=== PATIENT | male | born 1975 | race Caucasian/White ===

== ENCOUNTER 2020-01-02 03:05 | Observation (INO) ==
[2020-01-02] MEDS ORDERED: ASPIRIN 81 MG TAB.CHEW PO ONE (03:21)
[2020-01-02 03:22] LABS: Hematocrit 48.1 % (42.0-52.0); Hemoglobin 15.6 gm/dL (13.5-18.0); Mean Corpuscular Hemoglobin 33.4 pg (27-31); Mean Corpuscular Hgb Conc 32.4 g/dl (32-36); Mean Platelet Volume 10.9 fl (8-11.3); Platelet Count 161 K/mm3 (150-450); Red Blood Count 4.67 M/mm3 (4.7-6.0); Red Cell Distribution Width 14.2 % (11.5-14.0); White Blood Count 12.5 K/mm3 (4.0-10.5)
[2020-01-02 03:25] LABS: Total Cells Counted 100
[2020-01-02] MEDS ORDERED: FUROSEMIDE 10 MG/ML VIAL IV ONE (03:31)
[2020-01-02 03:35] LABS: Atypical (Reactive) Lymph 1 % (0-2); Band 1 % (0-2.0); Eosinophil 1 % (0-3); Lymphocyte 50 % (20-51); Monocyte 2 % (0-9); Neutrophil 45 % (42-75); Neutrophil # 5.6 K/mm3 (1.3-6.0)
[2020-01-02 03:36] LABS: Macrocytosis 2+; Platelet Estimate Normal (NORMAL)
[2020-01-02 03:37] LABS: Anisocytosis Trace; Polychromasia 1+
--- NOTE | 2020-01-02 03:40 | ERNOTE ---
Dyspnea - General Presenting Symptoms: shortness of breath Time Seen by Provider: 01/02/20 03:05 Source: patient Exam Limitations: no limitations - Immun/Allergies/Home Medications Immunizations: IMMUNIZATION HX Immunizations Up to Date Yes History of Influenza Vaccine No Allergies/Adverse Reactions: Allergies erythromycin base Allergy (Verified 01/02/20 03:18) Home Medications: HOME MEDICATIONS Carvedilol [Coreg] 6.25 mg PO BID 01/02/20 [Last Taken Unknown] Lisinopril [Zestril] 40 mg PO DAILY 01/02/20 [Last Taken Unknown] Rivaroxaban [Xarelto] 20 mg PO HS 01/02/20 [Last Taken Unknown] metFORMIN HCL [Metformin HCl] 1,000 mg PO DAILY 01/02/20 [Last Taken Unknown] - History of Present Illness Narrative: Patient states that he has had intermittent episodes of shortness of breath over the last few days. On 3 prior occasions including yesterday he woke up in the it instructor hours short of breath and ended up having to sleep in his chair. Symptoms improved over the next few hours. He has had some shortness of breath with heavy lifting at work intermittently as well and occasional chest pain. At 2:00 this morning he again woke up with severe shortness of breath, denies any significant chest pain. His is bringing him by private car from [place]. He had recent cardioversion at [facility] about 2 months ago for atrial fibrillation, has been on xarelto since, is not aware of any significant coronary artery disease, has a diagnosis of diabetes, high blood pressure and is a smoker, no history of lung disease. Date (Duration): 01/02/20 Time (Timing): 02:00 Initiating event: Denies: upper resp illness, out of meds Frequency of episodes: Reports: occassional episodes Modifying Factors - (Improves): Reports: rest Modifying Factors (Worsens): Reports: activity Associated Symptoms-Dyspnea: Denies: fever/chills, cough Prior Treatment: Reports: recently seen Review of Systems - Review of Systems Constitutional: Absent: recent illness, fever ENT: Absent: nose congestion, sore throat Respiratory: Present: See HPI, shortness of breath, cough Cardiology: Absent: chest pain Gastrointestinal/Abdominal: Absent: nausea, vomiting, abdominal pain Genitourinary: Present: no symptoms reported Musculoskeletal: Absent: back pain Neurological: Absent: headache Medical History (Last Reviewed 01/02/20 @ 03:23 by Genna Angulo MD) Afib Diabetes Hypertension Surgical History: Surgical History (Last Reviewed 01/02/20 @ 03:23 by Genna Angulo MD) No pertinent past surgical history Family History: Family History (Last Updated 01/02/20 @ 03:21 by Karina Hyman) Father Social History: (Last Updated 01/02/20 @ 03:19 by Karina Hyman) Social History: adopted: No foster care: No Marital status: Tobacco: Smoking Status: Current every day smoker Smoking cigarettes per day: 20 Alcohol: alcohol intake frequency: a few times a week Substance Use: substance use type: does not use Dietary Habits: Type: coffee high-fat food intake: 0-1 times daily Physical Exam - Physical Exam General Appearance: Present: wd/wn, alert, moderate distress Head Exam: Present: normal inspection Respiratory: Present: no accessory muscle use, respiratory distress, decreased breath sounds, expiration (prolonged), wheezing Cardiovascular/Chest: Present: no murmur, tachycardia Gastrointestinal/Abdominal: Present: normal bowel sounds, nontender Extremity Exam: Present: no edema Neurological Exam: Present: alert, oriented, normal mood/affect Skin Exam: Present: warm/dry, cyanosis Progress - Results and Orders Patient's Lab Results:: I have reviewed the patient's lab results. - Vital Signs Patient's Vital Signs:: I have reviewed the patient's vital signs. Vital Signs: Vital Signs 01/02/20 03:09 Temperature 36.7 C Pulse Rate 121 H Respiratory Rate 38 H Blood Pressure 209/114 H O2 Sat by Pulse Oximetry 74 L - EKG EKG #1 EKG: atrial fibrillation - HR 129, RBBB, nonspecific ST T wave changes EKG read: Interp. by me - X-Ray X-Ray #1 X-Ray: chest - cardiomegalie Interpretation: Interp. by me - Progress/Reassessment Chief Complaint: Dyspnea Progress Note-Subjective: 01/02/20 03:20 call to [facility], discussed with Dr Jewell (ERP), prior EKG has similar block picture 01/02/20 03:40 patient 93-93 on 10liter per ventimask 01/02/20 03:[address] Echevarria, no acute changes 01/02/20 04:13 patient had 400ml urine out put after lasix 60mg he is feeling much better, appears more comfortable with improved color, wheezing has resolved, HR 90's, O2 sat 93% on 6 liter discussed test results and offered admission, patient agrees 01/02/20 04:[address] Granados ,okay to admit for observation for CHF Departure Clinical Impression: CHF (congestive heart failure) Qualifiers: Heart failure type: unspecified Heart failure chronicity: acute Qualified Code(s): I50.9 - Heart failure, unspecified - Departure Disposition: Still a patient Condition: Stable
[2020-01-02 03:41] LABS: Albumin * 4.2 gm/dl (3.4-5.0); Anion Gap 9.8 mmol/L (6.8-13.8); BUN/Creatinine Ratio 18.1 (9.0-21.6); Bilirubin, Total 0.4 mg/dL (0.0-1.1); Ca. Corrected For Albumin 8.6 mg/dL (8.4-10.2); Calcium * 9.1 mg/dL (7.9-10.9); Carbon Dioxide 31.6 mmol/L (24-32.6); Potassium 4.4 mmol/L (3.4-4.6); Troponin I 0.02 ng/mL (0.00-0.10)
[2020-01-02 09:14] LABS: CKMB 2.4 ng/mL (0.0-9.0)
[2020-01-02 09:15] LABS: Troponin I 0.042 ng/mL (0.00-0.10)
[2020-01-02] MEDS ORDERED: LISINOPRIL 40 MG TABLET PO SCH (12:00)
[2020-01-02] MEDS ORDERED: metFORMIN HCL 500 MG TABLET PO SCH (12:00)
[2020-01-02] MEDS ORDERED: CARVEDILOL 6.25 MG TABLET PO SCH (12:00)
--- NOTE | 2020-01-02 13:47 | HPDIS ---
Chief Complaint - Chief Complaint Date of Service: 01/02/20 Time of Service: 13:36 Chief Complaint: Shortness of breath History of Present Illness: 44-year-old male with history of A. fib and hypertension presented to the ER following 2 to 3 weeks of worsening shortness of breath. In the ER he was found to have an elevated BNP at greater than 2600 but otherwise fairly unremarkable lab work. He was requiring oxygen to maintain sats in the appropriate range. Patient given IV Lasix and had significant diuresis while in the ER. Chest x- ray showed possible vascular congestion but no other acute cardiopulmonary process. Troponins negative x2. Patient on Xarelto for A. fib. Patient placed under observation for CHF exacerbation and transferred to the floor. Medical History (Last Reviewed 01/02/20 @ 05:20 by Kassy Mcallister RN) Afib Diabetes History of cardioversion synchonized at [facility] about 2 months ago Hypertension Surgical History: Surgical History (Last Reviewed 01/02/20 @ 03:23 by Genna Angulo MD) No pertinent past surgical history Family History: Family History (Last Updated 01/02/20 @ 03:21 by Karina Hyman) Father Social History: (Last Updated 01/02/20 @ 03:19 by Karina Hyman) Social History: adopted: No foster care: No Marital status: Tobacco: Smoking Status: Current every day smoker Smoking cigarettes per day: 20 Alcohol: alcohol intake frequency: a few times a week Substance Use: substance use type: does not use Dietary Habits: Type: coffee high-fat food intake: 0-1 times daily Review Of Systems (GEN) - Review of Systems Generalized/Overall Review: Absent: Weakness, Chills, Fever EENTM: Present: No Symptoms Reported Respiratory: Present: Shortness of Breath. Absent: Cough Cardiac: Present: No Symptoms Reported. Absent: Edema Abdominal: Present: No Symptoms Reported Genitourinary: Present: No Symptoms Reported Musculoskeletal: Present: No Symptoms Reported Skin: Present: No Symptoms Reported Immunizations: IMMUNIZATION HX Immunizations Up to Date Yes History of Influenza Vaccine No Allergies/Adverse Reactions: Allergies Allergy/AdvReac Type Severity Reaction Status Date / Time erythromycin base Allergy Verified 01/02/20 03:18 Home Medications: HOME MEDICATIONS Carvedilol [Coreg] 6.25 mg PO BID 01/02/20 [Last Taken Unknown] Furosemide [Lasix] 20 mg PO DAILY #30 tab 01/02/20 [Last Taken Unknown] Lisinopril [Zestril] 40 mg PO DAILY 01/02/20 [Last Taken Unknown] Rivaroxaban [Xarelto] 20 mg PO HS 01/02/20 [Last Taken Unknown] metFORMIN HCL [Metformin HCl] 1,000 mg PO DAILY 01/02/20 [Last Taken Unknown] Exam - Exam Vital Signs: Vital Signs - Last Taken Temp 37.3 C 01/02/20 10:53 Pulse 83 01/02/20 12:21 Resp 12 01/02/20 10:53 BP 155/97 H 01/02/20 12:21 Pulse Ox 95 01/02/20 10:53 Constitutional: Present: Alert, Oriented x3, Cooperative, Obese ENT Exam: Present: hearing grossly normal. Absent: nasal congestion, nasal drainage Eye Exam: bilateral eye: normal inspection, EOMI Neck: Present: non-tender, supple Respiratory: Present: lungs clear, normal breath sounds, no respiratory distress Cardiovascular/Chest: Present: no murmur, irregularly irregular Abdomen: Present: Normal bowel sounds, soft, nontender Extremity: Absent: lower extremity edema Skin Exam: Present: normal color, warm/dry Appearance: Present: appropriate appearance, appropriate insight Eye contact: Present: cooperative, good eye contact Thoughts: Present: normal thought pattern, normal mood /affect Diagnostic Studies: Abnormal Lab Results 01/02/20 01/02/20 Range/Units 03:20 03:20 WBC 12.5 H (4.0-10.5) K/mm3 RBC 4.67 L (4.7-6.0) M/mm3 MCV 103.0 H (78-100) fl MCH 33.4 H (27-31) pg RDW 14.2 H (11.5-14.0) % Lymphocytes # (Manual) 6.3 H (1.5-3.5) k/mm3 Plasma Sodium 144 H (130-142) mmol/L Random Glucose 206 H (70-110) mg/dL ALT 79 H (19-67) U/L B-Natriuretic Peptide 2617 H (5-140) pg/mL Laboratory Results WBC 12.5 K/mm3 (4.0-10.5) H 01/02/20 03:20 RBC 4.67 M/mm3 (4.7-6.0) L 01/02/20 03:20 Hgb 15.6 gm/dL (13.5-18.0) 01/02/20 03:20 Hct 48.1 % (42.0-52.0) 01/02/20 03:20 MCV 103.0 fl (78-100) H 01/02/20 03:20 MCH 33.4 pg (27-31) H 01/02/20 03:20 MCHC 32.4 g/dl (32-36) 01/02/20 03:20 RDW 14.2 % (11.5-14.0) H 01/02/20 03:20 Plt Count 161 K/mm3 (150-450) 01/02/20 03:20 MPV 10.9 fl (8-11.3) 01/02/20 03:20 Neutrophils % (Manual) 45 % (42-75) 01/02/20 03:20 Band Neuts % (Manual) 1 % (0-2.0) 01/02/20 03:20 Lymphocytes % (Manual) 50 % (20-51) 01/02/20 03:20 Monocytes % (Manual) 2 % (0-9) 01/02/20 03:20 Eosinophils % (Manual) 1 % (0-3) 01/02/20 03:20 Neutrophils # (Manual) 5.6 K/mm3 (1.3-6.0) 01/02/20 03:20 Lymphocytes # (Manual) 6.3 k/mm3 (1.5-3.5) H 01/02/20 03:20 Monocytes # (Manual) 0.3 k/mm3 (0.0-1.0) 01/02/20 03:20 Eosinophils # (Manual) 0.1 k/mm3 (0.0-0.7) 01/02/20 03:20 Atypic/Reactive Lymphs 1 % (0-2) 01/02/20 03:20 Platelet Estimate Normal (NORMAL) 01/02/20 03:20 Polychromasia 1+ 01/02/20 03:20 Anisocytosis Trace 01/02/20 03:20 Macrocytosis 2+ 01/02/20 03:20 D-Dimer 0.43 ug/mL (0.19-0.49) 01/02/20 03:20 Sodium 142 mmol/L (132-142) 01/02/20 03:20 Plasma Sodium 144 mmol/L (130-142) H 01/02/20 03:20 Potassium 4.4 mmol/L (3.4-4.6) 01/02/20 03:20 Chloride 105 mmol/L (97-106) 01/02/20 03:20 Carbon Dioxide 31.6 mmol/L (24-32.6) 01/02/20 03:20 Anion Gap 9.8 mmol/L (6.8-13.8) 01/02/20 03:20 BUN 19 mg/dL (6-23) 01/02/20 03:20 Creatinine 1.05 mg/dL (0.4-1.4) 01/02/20 03:20 Est GFR (Non-Af Amer) 81 mL/min (60-130) 01/02/20 03:20 BUN/Creatinine Ratio 18.1 (9.0-21.6) 01/02/20 03:20 Random Glucose 206 mg/dL (70-110) H 01/02/20 03:20 Calcium 9.1 mg/dL (7.9-10.9) 01/02/20 03:20 Calcium Adj for Albumin 8.6 mg/dL (8.4-10.2) 01/02/20 03:20 Total Bilirubin 0.4 mg/dL (0.0-1.1) 01/02/20 03:20 AST 44 U/L (0-48) 01/02/20 03:20 ALT 79 U/L (19-67) H 01/02/20 03:20 Alkaline Phosphatase 92 U/L (50-170) 01/02/20 03:20 Creatine Kinase 194 U/L (0-259) 01/02/20 08:49 CK-MB (CK-2) 2.4 ng/mL (0.0-9.0) 01/02/20 08:49 CK-MB (CK-2) Rel Index 1.2 (0.0-3.6) 01/02/20 08:49 Troponin I 0.042 ng/mL (0.00-0.10) 01/02/20 08:49 B-Natriuretic Peptide 2617 pg/mL (5-140) H 01/02/20 03:20 Total Protein 8.0 gm/dL (6.2-8.2) 01/02/20 03:20 Albumin 4.2 gm/dl (3.4-5.0) 01/02/20 03:20 Assessment/Plan - Narrative Narrative: 44-year-old male with history of hypertension, A. fib, diabetes, and CHF presented to the hospital shortness of breath initially requiring oxygen mask to maintain sats. This lasted for right around 3 hours the patient was transitioned to room air which she is maintaining sats in the upper 90s since. Not currently complaining of shortness of breath, cough, chest pain. Patient did receive some IV Lasix which helped pull off some fluid and made him much more comfortable. Currently feels well and wants to go home. His vital signs are stable although his blood pressure slightly elevated, he just received his blood pressure medicines though. Blood pressures in the 150s and okay to be discharged home. Patient had negative troponins. Cardia function electrolytes okay, mildly elevated sugars. Patient had mildly elevated white count which is likely due to stress reaction as there is no focal signs or symptoms of infection. MCV also elevated which I advised him to discuss this with his PCP. Not anemic. BNP at 2617 but otherwise the rest of his lab work unremarkable and his vital signs are stable. We will send him home with some oral Lasix that he can take when he starts to develop shortness of breath. Again he should follow-up with his PCP and superior court clerk in regards to his cardiac history which he agrees to do. He sees Dr. Echevarria. Otherwise no changes to his chronic medications. - Assessment/Plan (1) CHF (congestive heart failure) Problem: Acute Qualifiers: Heart failure type: unspecified Heart failure chronicity: acute Qualified Code(s): I50.9 - Heart failure, unspecified (2) A-fib Problem: Acute (3) Hypertension Problem: Acute (4) Diabetes Problem: Acute (1) CHF (congestive heart failure) Problem: Acute Qualifiers: Heart failure type: unspecified Heart failure chronicity: acute Qualified Code(s): I50.9 - Heart failure, unspecified (2) A-fib Problem: Chronic (3) Hypertension Problem: Chronic (4) Diabetes Problem: Chronic Date of Discharge:: 01/02/20 Hospital Course: 44-year-old male with history of hypertension, A. fib, diabetes, and CHF present ed to the hospital shortness of breath initially requiring oxygen mask to maintain sats. This lasted for right around 3 hours the patient was transitioned to room air which she is maintaining sats in the upper 90s since. Not currently complaining of shortness of breath, cough, chest pain. Patient did receive some IV Lasix which helped pull off some fluid and made him much more comfortable. Currently feels well and wants to go home. His vital signs are stable although his blood pressure slightly elevated, he just received his blood pressure medicines though. Blood pressures in the 150s and okay to be discharged home. Patient had negative troponins. Cardia function electrolytes okay, mildly elevated sugars. Patient had mildly elevated white count which is likely due to stress reaction as there is no focal signs or symptoms of infection. MCV also elevated which I advised him to discuss this with his PCP. Not anemic. BNP at 2617 but otherwise the rest of his lab work unremarkable and his vital signs are stable. We will send him home with some oral Lasix that he can take when he starts to develop shortness of breath. Again he should follow-up with his PCP and superior court clerk in regards to his cardiac history which he agrees to do. He sees Dr. Echevarria. Otherwise no changes to his chronic medications. Procedures Performed: none Results and Findings: Lab Pending Results 01/02/20 03:20: WBC 12.5 H, RBC 4.67 L, Hgb 15.6, Hct 48.1, MCV 103.0 H, MCH 33.4 H, MCHC 32.4, RDW 14.2 H, Plt Count 161, MPV 10.9, Neutrophils % (Manual) 45, Band Neuts % (Manual) 1, Lymphocytes % (Manual) 50, Monocytes % (Manual) 2, Eosinophils % (Manual) 1, Neutrophils # (Manual) 5.6, Lymphocytes # (Manual) 6.3 H, Monocytes # (Manual) 0.3, Eosinophils # (Manual) 0.1, Atypic/Reactive Lymphs 1, Platelet Estimate Normal, Polychromasia 1+, Anisocytosis Trace, Macrocytosis 2+ 01/02/20 03:20: Sodium 142, Plasma Sodium 144 H, Potassium 4.4, Chloride 105, Carbon Dioxide 31.6, Anion Gap 9.8, BUN 19, Creatinine 1.05, Est GFR (Non-Af Amer) 81, BUN/Creatinine Ratio 18.1, Random Glucose 206 H, Calcium 9.1, Calcium Adj for Albumin 8.6, Total Bilirubin 0.4, AST 44, ALT 79 H, Alkaline Phosphatase 92, Troponin I 0.020, B-Natriuretic Peptide 2617 H, Total Protein 8.0, Albumin 4.2 01/02/20 03:20: D-Dimer 0.43 01/02/20 08:49: Creatine Kinase 194, CK-MB (CK-2) 2.4, CK-MB (CK-2) Rel Index 1.2, Troponin I 0.042 Discharge Location: Home Disposition: Home self-care Condition: Stable Discharge Activity: Activity as tolerated Discharge Diet: Consistent carbs Referrals: Michelle Erazo CNP [Primary Care Provider] - One Week Additional Patient Instructions (free text): [email or web address] a Website that helps people who want to quit smoking, free of charge or call . Prescriptions (Any new or edited meds): Furosemide [Lasix] 20 mg PO DAILY #30 tab Transmission Status: Pending to [facility] [employer] #[id number] Complete Home Medications List: Complete Home Medication List: Carvedilol [Coreg] 6.25 mg PO BID 01/02/20 Furosemide [Lasix] 20 mg PO DAILY #30 tab 01/02/20 Lisinopril [Zestril] 40 mg PO DAILY 01/02/20 Rivaroxaban [Xarelto] 20 mg PO HS 01/02/20 metFORMIN HCL [Metformin HCl] 1,000 mg PO DAILY 01/02/20 Forms: Patient Portal Registration
[2020-01-02 14:26] VITALS: BP 150/96
[2020-01-02] MEDS ORDERED: RIVAROXABAN 20 MG TABLET PO SCH (21:00)
== END 2020-01-02 15:00 | disposition home or self-care (01) ==
LOC: ER 03:05 → MS 03:05
PROVIDERS: ADMIT Family Medicine; ATTEND Family Medicine
DX: Z79.01 Long term (current) use of anticoagulants; F17.210 Nicotine dependence, cigarettes, uncomplicated; I11.0 Hypertensive heart disease with heart failure; E11.9 Type 2 diabetes mellitus without complications; I48.91 Unspecified atrial fibrillation; I50.9 Heart failure, unspecified
CPT/HCPCS: 36415; 71010; 71045; 80053; 82550; 82553; 83519; 83880; 84484; 85025; 85379; 93005; 94760; 96374; 99285